=== PATIENT | female | born 1940 | race Caucasian/White ===

== ENCOUNTER 2016-09-29 16:02 | Outpatient (CLI) | payer MEDICARE | END 2016-09-29 16:03 | disposition home or self-care (01) | LOC: HPCALD 16:02 | PROVIDERS: ATTEND Family Medicine | DX: R39.9 Unspecified symptoms and signs involving the genitourinary system (principal) | CPT/HCPCS: 87086 ==

== ENCOUNTER 2016-11-06 14:10 | Outpatient (CLI) | payer MEDICARE ==
[2016-11-06 14:52] LABS: #Basophils 0.2 thou/uL (0.0-0.2); #Eosinphils 1.3 thou/uL (0.0-0.7); #Lymphocytes 4.7 thou/uL (1.20-3.40); #Monocytes 0.9 thou/uL (0.11-0.59); #Neutrophils 4.6 thou/uL (1.40-6.50); %Basophils 1.4 % (0.0-1.0); %Eosinophils 11.1 % (0.0-10.0); %Lymphocytes 40.2 % (21.0-51.0); %Monocytes 7.6 % (0.0-10.0); %Neutrophils 39.8 % (42.0-75.0); Mean Corpuscular HGB CONC 32.5 g/dL (32.0-36.0); Mean Corpuscular Hemoglobin 30.9 pg (27.0-31.0); Mean Corpuscular Volume 95.4 fl (81.0-99.0); Mean Platelet Volume 9.1 fL (7.4-10.4); Platelet Count 253 thou/uL (130-400); RBC Distribution Width 13.1 % (11.5-14.5); Red Blood Cell (RBC) Count 4.54 mill/uL (4.20-5.40); White Blood Cell (WBC) Count 11.6 thou/uL (4.8-10.8)
[2016-11-06 14:56] LABS: Bilirubin Negative (Negative); Blood, Urine Trace (Negative); Clarity Clear (Clear); Glucose, Urine (Dipstick) Negative (Negative); Leukocyte Trace (Negative); Nitrite Negative (Negative); Protein, Urine (Dipstick) Negative (Neg-Trace); Specific Gravity, Urine 1.015 (1.005-1.030); Urobilinogen 0.2 mg/dL (0.2-1.0); pH, Urine 6.5 (5.0-9.0)
[2016-11-06 15:04] LABS: Bacteria/HPF Rare-Few HPF (None Seen); RBC/HPF 0-3 HPF (0-3); Squamous Epithelial 0-3 HPF (0-3); WBC/HPF 0-3 HPF (0-3)
[2016-11-06 15:54] LABS: ALT (SGPT) 13 U/L (8-55); AST (SGOT) 18 U/L (5-34); Albumin 3.9 g/dL (3.4-4.8); Alkaline Phosphatase 64 U/L (40-150); Anion Gap 14 mmol/L (10-20); BUN (Urea Nitrogen) 13 mg/dL (9.8-20.1); Bilirubin, Total 0.3 mg/dL (0.2-1.2); Calc. Creatinine Clearance 0 mL/min (70-130); Carbon Dioxide 26 mmol/L (23-31); Cardiac Risk 3.6 (Less than 4.5); Chloride 102 mmol/L (98-107); Cholesterol 217 mg/dl (< 200 Desired); Estimated GFR-MDRD 42; Globulin 2.8 g/dL (2.4-3.5); Glucose 93 mg/dL (83-110); HDL Cholesterol 60 mg/dL (>60 Neg Risk); LDL Cholesterol, Calculated 105 mg/dL; Potassium 3.4 mmol/L (3.5-5.1); Protein, Total 6.7 g/dL (6.0-8.3); Sodium 139 mmol/L (136-145); Triglycerides 260 mg/dL (Less than 150)
== END 2016-11-06 14:11 | disposition home or self-care (01) ==
LOC: HPCALD 14:10
PROVIDERS: ATTEND Family Medicine
DX: Z13.6 Encounter for screening for cardiovascular disorders (principal); I10 Essential (primary) hypertension
CPT/HCPCS: 36415; 80053; 80061; 81001; 85025

== ENCOUNTER 2016-11-06 14:31 | Outpatient (CLI) | payer MEDICARE ==
--- NOTE | 2016-11-07 07:28 | RAD ---
CHEST TWO VIEWS: Date: 11-06-16 FINDINGS: The heart is upper limits of normal in size but there are no congestive changes or pleural effusions . No lobar consolidations were present. There is a little linear streaking in the costophrenic angle s, especially the left. This is probably either scarring or atelectasis. Old healed rib fractures ar e noted on the left. There is a faint subcentimeter area of increased density in the right lateral c hest that could be a tiny pulmonary nodule. It also could be a rib or due to overlap of structures. This should be monitored on follow up studies. IMPRESSION: 1. No evidence of acute pneumonia. 2. Minimal cardiomegaly. 3. Old left rib fractures. 4. Question of subcentimeter nodule in the right lateral chest but not confirmed. It may be prudent to at least get a follow up chest x-ray in 1-2 months to take a second look at the area. Alternative ly, one could do a CT and remove all doubt if needed. Code T POS: HOME
== END 2016-11-06 14:32 | disposition home or self-care (01) ==
LOC: BURRAD 14:31
PROVIDERS: ATTEND Family Medicine
DX: R05 Cough (principal); I51.7 Cardiomegaly
CPT/HCPCS: 36415; 71020; 80053; 80061; 81001; 85025

== ENCOUNTER 2016-12-27 16:29 | Outpatient (CLI) | payer MEDICARE | END 2016-12-27 16:30 | disposition home or self-care (01) | LOC: HPCALD 16:29 | PROVIDERS: ATTEND Family Medicine | DX: N39.0 Urinary tract infection, site not specified (principal) | CPT/HCPCS: 87077; 87086; 87186 ==

== ENCOUNTER 2018-12-27 13:52 | Emergency (ER) | payer MEDICARE ==
[2018-12-27] MEDS ORDERED: Oxymetazoline HCl 0.05% (30 ML BOT) ONE (14:42)
[2018-12-27] MEDS ORDERED: Adacel (T-DAP) 0.5 ML SYRINGE ONE (14:56)
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
== END 2018-12-27 14:59 | disposition home or self-care (01) ==
LOC: BURERS 13:52
DX: S01.531A Puncture wound without foreign body of lip, initial encounter (principal); S01.81XA Laceration without foreign body of other part of head, initial encounter; S00.31XA Abrasion of nose, initial encounter; I10 Essential (primary) hypertension; Z79.899 Other long term (current) drug therapy; Z23 Encounter for immunization; W18.30XA Fall on same level, unspecified, initial encounter
CPT/HCPCS: 70450; 70486; 90471; 90715

== ENCOUNTER 2020-06-22 11:36 | Emergency (ER) | payer MEDICARE ==
[2020-06-22 12:08] LABS: Bilirubin Negative (Negative); Blood, Urine Trace (Negative); Clarity Clear (Clear); Glucose, Urine (Dipstick) Negative (Negative); Ketone, Urine Negative (Negative); Leukocyte Small (Negative); Nitrite Negative (Negative); Protein, Urine (Dipstick) Negative (Neg-Trace); Urobilinogen 0.2 mg/dL (Less than 2)
[2020-06-22 12:23] LABS: Bacteria/HPF 1+ HPF (None Seen); RBC/HPF 0-3 HPF (0-3); Squamous Epithelial 0-3 HPF (0-3); Yeast-Budding Rare HPF (None Seen)
== END 2020-06-22 13:43 | disposition home or self-care (01) ==
LOC: BURERS 11:36
DX: N39.0 Urinary tract infection, site not specified (principal); I10 Essential (primary) hypertension
CPT/HCPCS: 51798; 81003; 81015; 87086

== ENCOUNTER 2022-03-22 17:37 | Emergency (ER) | payer MEDICARE ==
[2022-03-22 18:24] LABS: #Basophils 0.1 thou/uL (0.0-0.2); #Eosinphils 0.4 thou/uL (0.0-0.7); #Monocytes 0.7 thou/uL (0.11-0.59); #Neutrophils 7.3 thou/uL (1.40-6.50); %Basophils 1.1 % (0.0-1.0); %Eosinophils 2.7 % (0.0-10.0); %Lymphocytes 36.7 % (21.0-51.0); %Monocytes 5.3 % (0.0-10.0); %Neutrophils 54.3 % (42.0-75.0); Hemoglobin 13.9 g/dL (12.0-16.0); Mean Corpuscular HGB CONC 32.8 g/dL (32.0-36.0); Mean Corpuscular Hemoglobin 32.4 pg (27.0-31.0); Mean Corpuscular Volume 98.7 fl (78.0-98.0); Mean Platelet Volume 10.6 fL (7.4-10.4); Platelet Count 266 10x3/uL (130-400); RBC Distribution Width 12.5 % (11.5-14.5); Red Blood Cell (RBC) Count 4.29 mill/uL (4.20-5.40); White Blood Cell (WBC) Count 13.5 10x3/uL (4.8-10.8)
[2022-03-22 18:43] LABS: ALT (SGPT) 12 U/L (8-55); AST (SGOT) 12 U/L (5-34); Albumin 3.6 g/dL (3.4-4.8); Alkaline Phosphatase 67 U/L (40-110); Anion Gap 16 mmol/L (10-20); BUN (Urea Nitrogen) 19 mg/dL (9.8-20.1); Bilirubin, Total 0.3 mg/dL (0.2-1.2); Calc. Creatinine Clearance 0 mL/min (70-130); Carbon Dioxide 25 mmol/L (23-31); Chloride 102 mmol/L (98-107); Estimated GFR 37; Globulin 2.9 g/dL (2.4-3.5); Glucose 156 mg/dL (83-110); Potassium 3.5 mmol/L (3.5-5.1); Protein, Total 6.5 g/dL (5.8-8.1); Sodium 139 mmol/L (136-145)
[2022-03-22] MEDS ORDERED: predniSONE 20 MG TAB ONE (19:01)
== END 2022-03-22 19:14 | disposition home or self-care (01) ==
LOC: BURERS 17:37
DX: J45.909 Unspecified asthma, uncomplicated (principal); E78.00 Pure hypercholesterolemia, unspecified; I10 Essential (primary) hypertension; Z79.899 Other long term (current) drug therapy
CPT/HCPCS: 36415; 71046; 80053; 83880; 84484; 85025; 85379; 93005; J7512